=== PATIENT | male | born 1955 | race Caucasian/White ===

== ENCOUNTER → 2017-01-19 | Outpatient (CLI) | payer OTHER ==
[~2017-01-19] MED LIST: IOPAMIDOL (ISOVUE 370) 100 ML BTL IV ONE
== END ==
LOC: FIMAGING 08:54
PROVIDERS: ATTEND Psychiatry & Neurology Neurology
DX: I77.71 Dissection of carotid artery (principal)
CPT/HCPCS: Q9967

== ENCOUNTER → 2017-02-28 | Outpatient (CLI) | payer OTHER | LOC: BMCIMAGING 07:18 | PROVIDERS: ATTEND Internal Medicine | DX: K76.89 Other specified diseases of liver (principal); N28.89 Other specified disorders of kidney and ureter ==

== ENCOUNTER → 2017-03-07 | Outpatient (CLI) | payer OTHER ==
[~2017-03-07] MED LIST changes: -IOPAMIDOL (ISOVUE 370) 100 ML BTL IV ONE; +IOPAMIDOL (ISOVUE-300) 100 ML BTL ONE
== END ==
LOC: FIMAGING 14:36
PROVIDERS: ATTEND Internal Medicine
DX: N28.9 Disorder of kidney and ureter, unspecified (principal); N28.1 Cyst of kidney, acquired; J98.6 Disorders of diaphragm
CPT/HCPCS: Q9967

== ENCOUNTER → 2017-03-22 | Outpatient (CLI) | payer OTHER | LOC: FIMAGING 10:19 | PROVIDERS: ATTEND Internal Medicine | DX: J98.6 Disorders of diaphragm (principal); J98.4 Other disorders of lung | CPT/HCPCS: Q9967 ==

== ENCOUNTER → 2017-03-29 | Outpatient (CLI) | payer OTHER | LOC: FIMAGING 14:02 | PROVIDERS: ATTEND Internal Medicine | DX: J98.6 Disorders of diaphragm (principal) ==